=== PATIENT | male | born 1930 | race Caucasian/White ===

== ENCOUNTER → 2016-06-27 | Outpatient (CLI) | payer OTHER, BC ==
[2016-06-27 11:39] LABS: BILIRUBIN,TOTAL 0.7 mg/dL (0.3-1.2); BUN/CREATININE RATIO 20.83 (6-20); CALCIUM 9.8 mg/dL (8.7-10.7); CREATININE 1.2 mg/dL (0.70-1.50); LDL CHOLESTEROL,CALCULATED 54.6 mg/dL; POTASSIUM 4.5 meq/L (3.8-5.2); TOTAL PROTEIN 7.1 g/dL (6.1-8.0)
== END ==
LOC: LAB 11:10
PROVIDERS: ATTEND Internal Medicine
DX: I10 Essential (primary) hypertension (principal); E78.5 Hyperlipidemia, unspecified
CPT/HCPCS: 36415; 80053; 80061; 82550

== ENCOUNTER → 2016-06-30 | Outpatient (CLI) | payer OTHER, BC | LOC: MMPC 11:11 | PROVIDERS: ATTEND Internal Medicine | DX: I10 Essential (primary) hypertension (principal); E78.5 Hyperlipidemia, unspecified; L57.8 Other skin changes due to chronic exposure to nonionizing radiation; R04.0 Epistaxis; Z95.0 Presence of cardiac pacemaker | CPT/HCPCS: 99214; G0463 ==

== ENCOUNTER 2017-02-20 10:20 | Observation (INO) ==
[2017-02-20] MEDS ORDERED: ASPIRIN 81 MG (BABY) CHEWABLE TABLET ONE (10:37)
[2017-02-20] MEDS ORDERED: Sodium Chloride 0.9% 1,000 ML ONE (10:37)
[2017-02-20] MEDS ORDERED: NITROGLYCERIN 0.4 MG SL TAB (BOTTLE OF 3) SL ONE (10:37)
[2017-02-20] MEDS: NITROGLYCERIN 0.4 MG SL TAB (BOTTLE OF 3) SL ONE ×2 (10:40→10:48)
[2017-02-20] MEDS ORDERED: ASPIRIN 81 MG (BABY) CHEWABLE TABLET PO ONE (10:40)
[2017-02-20] MEDS ORDERED: NORMAL SALINE 10 ML SYRINGE FLUSH IVP PRN ×2 (10:40→12:37)
--- NOTE | 2017-02-20 10:42 | EKG ---
[address] [place] [address] Measurements Intervals Gray Rate: 57 P: PA: 0 QRS: -6 QRSD: 118 T: 113 QT: 448 QTc: 442 Interpretive Statements UNCERTAIN IRREGULAR RHYTHM ELECTRONIC VENTRICULAR PACEMAKER -- CONTOUR ANALYSIS BASED ON INTRINSIC RHYTHM MODERATE INTRAVENTRICULAR CONDUCTION DELAY [110+ ms QRS DURATION] ST DEVIATION AND MODERATE T-WAVE ABNORMALITY, CONSIDER ANTEROLATERAL ISCHEMIA [-0.1+ mV T WAVE IN V3-V6] Compared to ECG 06/12/2015 09:20:42 Intraventricular conduction delay now present T-wave abnormality now present Possible ischemia now present Electronically Signed On 02-23-17 08:38:36 MST by Santiago Hassan MD [email or web address]
[2017-02-20 10:47] LABS: BASOPHILS # (AUTO) 0.07 10*3/UL; BASOPHILS % (AUTO) 0.6 % (0-1); EOSINOPHILS # (AUTO) 0.21 10*3/UL; EOSINOPHILS % (AUTO) 1.9 % (0-8); Hematocrit [HCT] 40.1 % (42.0-52.0); Hemoglobin [HGB] 13.9 g/dL (14.0-18.0); LYMPHOCYTES # (AUTO) 5.94 10*3/uL; MEAN CORPUSCULAR HEMOGLOBIN 30.5 PG (27-31); MEAN CORPUSCULAR HGB CONC 34.7 g/dL (33-37); MEAN CORPUSCULAR VOLUME 87.9 FL (80-90); MONOCYTES # (AUTO) 1.12 10*3/UL (0.3-0.8); MONOCYTES % (AUTO) 10.2 % (5-15); NEUTROPHILS # (AUTO) 3.61 10*3/UL; RED BLOOD COUNT 4.56 10^6/uL (4.70-6.10)
--- NOTE | 2017-02-20 10:47 | PDOC ---
Chest Pain HPI - General Chief Complaint: Chest Pain Stated Complaint: chest pain Date Seen by Provider: 02/20/17 Time Seen by Provider: 10:30 Source: Patient Exam Limitations: POSITIVE: No limitations Treatment Prior to Arrival: REPORTS: Nitroglycerin (Patient took one sublingual nitroglycerin at home prior to arrival), Aspirin (Patient last took aspirin last night) Nurse's Notes Reviewed & Considered: Yes - History of Present Illness Initial Comments: The patient is an 86-year-old male who presents to the emergency department with the chief complaint of chest pain. He has a known history of coronary artery disease and has had stent placement on 2 prior occasions, both over 10 years ago. He also has a pacemaker. He states that after waking up this morning approximately one hour prior to arrival here in the emergency department he developed a very slight chest pressure associated with general malaise and lack of energy. He states that the pain is somewhat similar to cardiac issues that he has had in the past. He did take a sublingual nitroglycerin at home which seem to have improved the pain. By the time he arrives here in the emergency department his pain is very minimal. After lying in the bed he states that his pain is less than 1. His pain was never very intense even when it was at its worst. He denies any associated shortness of breath, nausea or vomiting, diaphoresis. The pain did not seem to worsen with walking. He is not have any increased pain with taking a deep breath. He denies any pain or swelling in his extremities. - Patient Home Medications Home Medications: Home Medications Vits A,C,E/Lutein/Minerals [Vision Vitamins Tablet] 1 tab PO DAILY tab arginine HCl (L-arginine) 1,000 mg tablet 1,000 mg PO DAILY tab 12/25/16 aspirin 81 mg tablet,delayed release 81 mg PO DAILY #90 tab 12/25/16 benazepril 10 mg tablet 10 mg PO QDAY #90 tab 12/25/16 cholecalciferol (vitamin D3) 2,000 unit capsule 4,000 unit PO DAILY cap clopidogrel 75 mg tablet 75 mg PO DAILY #90 tab 12/25/16 furosemide 40 mg tablet 40 mg PO QAM #90 tab 12/25/16 magnesium amino acid chelate 100 mg tablet 100 mg PO DAILY tab 12/25/16 meclizine 25 mg tablet 25 mg PO QID PRN #30 tab 12/25/16 multivitamin with minerals tablet 1 tab PO BID #60 tab 12/25/16 nitroglycerin 0.4 mg sublingual tablet 0.4 mg SL Q5M PRN #30 tab 12/25/16 potassium gluconate 595 mg (99 mg) tablet 198 mg PO DAILY unit 12/25/16 red yeast rice 600 mg capsule 600 mg PO DAILY cap 12/25/16 saw palm 160 mg-vit E 100 unit-selen 100 dsn-nrio-zzwheq-pygeum tablet 3 tab PO QDAY #30 tab 12/25/16 simvastatin 20 mg tablet 20 mg PO QHS #90 tab 12/25/16 - Patient Allergies Allergies/Adverse Reactions: Allergies 3 Allergy/AdvReac Type Severity Reaction Status Date / Time carvedilol [From Coreg] AdvReac Intermediate DIZZINESS Verified 02/20/17 11:01 Past Medical History - heen HEENT History: Other (please comment) Additional HEENT History: wears glasses Cardiovascular History: Hypertension, Angina, Previous RI, CAD, Arrhythmia, Pacemaker, Hyperlipidemia Additional Cardiovasular History: RI in 1990, Pacemaker placement 06/2011 Respiratory History: Denies History Gastrointestinal History: Denies History Genitourinary History: Other (please comment) Additional Genitourinary History: BPH Endocrine History: Denies History Musculoskeletal History: Denies History Neurological History: Denies History Blood Disorders: Denies History Psychiatric History: Denies History History of Sexually Transmitted Diseases: No Cancer History: Denies History History of MDRO: Unknown History of Other Communicable Diseases: No Alcohol Use: None In the Past 12 Months, Have Used or Abuse Any Substance: None Previous Surgical History: Yes Type / Date of Surgery: pacemaker 06/2011 Anesthesia Reactions: No Significant Family History: Heart disease Past Medical History Reviewed: Other (please comment) ROS - Limitations ROS Limitations: No Limitations Constitution: REPORTS: Other (General malaise and lack of energy this morning). DENIES: Chills, Fever Cardiovascular: REPORTS: Chest Pain. DENIES: Heart Racing, Heart Palpitations, Edema Respiratory: DENIES: Cough Non Productive, Cough Productive, Hurts To Breathe, Shortness Of Breath Neurological: DENIES: Headache, Numbness, Weakness Gastrointestinal: DENIES: Abdominal Pain, Nausea, Vomitting Musculoskeletal: REPORTS: Denies MS Symptoms Eyes: REPORTS: Denies Symptoms ENT: REPORTS: Denies Symptoms Skin: DENIES: Rash Chest Pain PE - General Appearance General Appearance: REPORTS: Alert, Cooperative, No Acute Distress - HEENT HEENT: POSITIVE: Head Inspection Nml, Eyes Inspection Nml, Ears Inspection Nml, Nose Inspection Nml, Pharynx Inspect. Nml - Neck Neck: REPORTS: Normal Inspection. 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 Lab Results Reviewed by Me: Yes CBC and BMP: 02/20/17 10:25 02/20/17 10:25 EKG Interpreted/Reviewed By Me:: Yes EKG Interpretation:: POSITIVE: Other (EKG shows a paced rhythm which appears to be unchanged from her previous from May 2015 by my interpretation) - Patient's Progress MDM / ED Course: On arrival the patient's pain had improved and was basically resolved by the time of initial evaluation. EKG shows a paced rhythm in the 50s with no obvious acute changes when compared to previous. He was given aspirin per chest pain protocol. The patient's pain resolved while he was here in the emergency department. Vital signs remained stable with a intermittently paced rhythm in the 50s. His initial blood work reveals a normal d-dimer and normal troponin. Chest x-ray shows mild increased interstitial markings compared to previous per radiologist. Findings were discussed with the patient. The patient does have known coronary artery disease and I did recommend that the patient be admitted for further monitoring and testing. The patient was initially reluctant and consider his options and decided to be admitted. Dr. Navarro has agreed to admit the patient. - Consult Counseled: POSITIVE: Patient, Family, RE: Lab Results, RE: Radiology Results, RE : DX Patient Care Time - Estimated PCT Patient Care Time (In Minutes): 35 Vital Signs - Recent Vital Signs Vital Signs: Vital Signs (Last 8 hours) Temp Pulse Pulse Pulse Resp BP Pulse Ox 02/20/17 10:26 57 L 02/20/17 10:20 97.4 F 64 62 62 16 161/76 98 - VS Reviewed Vital Signs Reviewed: Yes Discharge Clinical Impression: Chest pain Discharge Disposition: Admit to Observation Condition: Fair
[2017-02-20 10:55] LABS: BLOOD UREA NITROGEN 19 mg/dL (7-22); BUN/CREATININE RATIO 17.27 (6-20); MAGNESIUM 1.9 mg/dL (1.6-2.4); SERUM ALBUMIN 4.5 g/dL (3.5-4.8)
[2017-02-20 11:15] LABS: PLATELET MORPHOLOGY COMMENT NORMAL MORPHOLOGY (NORM); RBC MORPHOLOGY COMMENT NORMAL MORPHOLOGY (NORM); WBC MORPHOLOGY COMMENT SEE COMMENTS (NORM)
--- NOTE | 2017-02-20 11:46 | DI ---
XR CXR 1VW,02/20/2017 10:40 AM: Clinical History: Chest pain Previous Exam: August 11, 2013 Findings: A single frontal radiograph of the chest is obtained, and demonstrates mild cardiomegaly. Overlying E KG leads are noted. There is stable pacemaker noted. There are some mild increased interstitial markings. Impression: Mild increased interstitial markings compared with the prior exam otherwise unremarkable. This could represent some early edema.
--- NOTE | 2017-02-20 12:03 | PDOC ---
HPI - History of Present Illness Chief Complaint: Chest pain History of Present Illness: This very nice 86-year-old gentleman with past medical history significant for coronary artery disease with multiple stents both the over 10-11 years ago around the year 1999 he also has a pacemaker. He woke up this morning around 9 AM complaining of mild chest pain 2 out of 10 by the time that he went to the ER the pain was resolved and now he is chest pain-free but because of his history of coronary artery disease and at the pain is unusual for him was admitted for observation to rule it out and do most likely a Lexiscan stress test pain did not radiate to left arm jaw or neck no nausea vomiting or diaphoresis or shortness of breath Past Medical History Medical History: Coronary artery disease, hypertension Surgical History: Multiple stents in the year 1999 Tobacco Use: Never Smoker In the Past 12 Months, Have Used or Abuse Any of the Following Substance: None Alcohol Use: None Medication / Allergies Home Medications: Home Medications Medication Instructions Recorded Confirmed Type Vits A,C,E/Lutein/Minerals [Vision 1 tab PO DAILY tab 12/25/16 02/20/17 History Vitamins Tablet] arginine HCl (L-arginine) 1,000 mg 1,000 mg PO DAILY tab 12/25/16 02/20/17 History tablet aspirin 81 mg tablet,delayed 81 mg PO DAILY #90 tab 12/25/16 02/20/17 History release benazepril 10 mg tablet 10 mg PO QDAY #90 tab 12/25/16 02/20/17 Rx cholecalciferol (vitamin D3) 2,000 4,000 unit PO DAILY cap 12/25/16 02/20/17 History unit capsule clopidogrel 75 mg tablet 75 mg PO DAILY #90 tab 12/25/16 02/20/17 Rx furosemide 40 mg tablet 40 mg PO QAM #90 tab 12/25/16 02/20/17 Rx magnesium amino acid chelate 100 100 mg PO DAILY tab 12/25/16 02/20/17 History mg tablet meclizine 25 mg tablet 25 mg PO QID PRN #30 tab 12/25/16 02/20/17 History multivitamin with minerals tablet 1 tab PO BID #60 tab 12/25/16 02/20/17 History nitroglycerin 0.4 mg sublingual 0.4 mg SL Q5M PRN #30 tab 12/25/16 02/20/17 Rx tablet potassium gluconate 595 mg (99 mg) 198 mg PO DAILY unit 12/25/16 02/20/17 History tablet red yeast rice 600 mg capsule 600 mg PO DAILY cap 12/25/16 02/20/17 History saw palm 160 mg-vit E 100 3 tab PO QDAY #30 tab 12/25/16 02/20/17 Rx unit-selen 100 fha-ptxe-btukbt-pygeum tablet simvastatin 20 mg tablet 20 mg PO QHS #90 tab 12/25/16 02/20/17 Rx Allergies/Adverse Reactions: Allergies 3 Allergy/AdvReac Type Severity Reaction Status Date / Time carvedilol [From Coreg] AdvReac Intermediate DIZZINESS Verified 02/20/17 11:01 Review of Systems - Review of Systems All Systems: Reviewed & No Additional Complaints Except as Stated - Eye Exam Eye Exam: DENIES: Negative System Review, Acuity Good, Acuity Fair, Acuity Poor , Glasses/Contacts, Vision Loss, Blurring, Redness, Diplopia, Catarats, Other, See HPI - Cardiovascular Cardiovascular: REPORTS: Chest Pain. DENIES: Edema, Syncope, Palpitations, Orthopnea - Gastrointestinal Gastrointestinal / Abdominal: DENIES: Negative System Review, Nausea, Vomiting, Diarrhea, Constipation, Abdominal Pain, Bloody Stool, Poor Appetite, Heartburn, Regurgitation, Bloating, Lactose Intolerance, Melena, Bright Red Blood per Rectum, Other, See HPI - Genitourinary Genitourinary: DENIES: Negative System Review, Pain, Burning, Hematuria, Incontinence, Urgency, Hesitant Stream, Decreased Stream, Nocutria, Discharge, Sexual Dysfunction, Other, See HPI Exam - Vitals Vital Signs: Vital Signs Temperature 97.4 F Temperature Source Temporal Artery Scan Pulse Rate [Telemetry] 62 Pulse Rate [Apical] 62 Pulse Rate 57 Respiratory Rate 16 Blood Pressure [Right Arm] 161/76 Pulse Ox 98 Oxygen Delivery Method Room Air Height 6 ft 2 in Weight 180 lb - General General Appearance: No Acute Distress, Cooperative - Head Head Exam: Normal Inspection, Normocephalic, Atraumatic - Eye Eye Exam: POSITIVE: Normal Appearance, PERRL, EOMI, No Scleral Icterus - ENT ENT Exam: POSITIVE: Normal Exam, Normal External Ear Exam, Normal Oropharynx, TM 's Normal Bilaterally, Mucous Membranes Moist - Neck Neck Exam: Normal Inspection, Full ROM, No Tenderness, No Lymphadenopathy, No Thyromegaly, JVP is not Raised - Respiratory Respiratory Exam: POSITIVE: Clear to Auscultation - Bilaterally, Breathing Non Labored, Normal To Percussion, Normal to Percussion and Palpation - Cardiovascular Cardiovascular Exam: POSITIVE: RRR, No Murmur, No Clicks, No Gallops, No Rubs, PMI Non-Displaced - GI/Abdominal GI/Abdominal Exam: POSITIVE: Normal Bowel Sounds, Non Tender, Non Distended, Soft, No Masses, No Hepatomegaly, No Splenomegaly, No Organomegaly - Rectal Rectal Exam: POSITIVE: Deferred - External Exam: POSITIVE: Deferred Exam: POSITIVE: Deferred - Extremities Extremities Exam: POSITIVE: Normal Inspection, Full ROM, Normal Capillary Refill , No Clubbing Present, No Edema Present, No Cyanosis Present, Dosalis Pedis Pulses - Stong & Regular - Neurological Neurological Exam: POSITIVE: Alert, Oriented x 3, Reflexes Normal, Normal Gait, CN II-XII Intact, No Facial Droop, Speech Intact / Clear, Moves All Extremities Equally - Psychiatric Psychiatric Exam: POSITIVE: Normal Affect, Normal Mood - Integumentary Integumentary Exam: POSITIVE: Normal Color, Warm, Dry, Intact Results - Labs CBC and BMP: 02/20/17 10:25 02/20/17 10:25 Assessment and Plan - Patient Problems (1) Chest pain Current Visit: Yes Status: Acute Comment: Unusual pain for this patient we will admit to observation rule out with serial troponins for Lexiscan stress test Code(s): R07.9 - Chest pain, unspecified (2) Coronary artery disease Current Visit: No Status: Acute Onset Date: 02/26/11 Code(s): I25.10 - Atherosclerotic heart disease of [place] coronary artery without angina pectoris (3) Essential hypertension Current Visit: No Status: None
[2017-02-20] MEDS ORDERED: LYC PO SCH (12:37)
[2017-02-20] MEDS ORDERED: VIT E PO SCH (12:37)
[2017-02-20] MEDS ORDERED: CALCIUM CARBONATE 500 MG (TUMS) CHEWABLE TABLET PO PRN (12:37)
[2017-02-20] MEDS ORDERED: LIDOCAINE W/ SODIUM BICARB 0.5 ML SYR SUBD PRN (12:37)
[2017-02-20] MEDS ORDERED: NITROGLYCERIN 0.4 MG SL TAB (BOTTLE OF 3) SL PRN (12:37)
[2017-02-20] MEDS ORDERED: SOD SEL PO SCH (12:37)
[2017-02-20] MEDS ORDERED: BETA PO SCH (12:37)
[2017-02-20] MEDS ORDERED: SAW PO SCH (12:37)
[2017-02-20] MEDS ORDERED: PYG PO SCH (12:37)
[2017-02-20] MEDS ORDERED: MECLIZINE 25 MG CHEWABLE TABLET PO PRN (13:00)
[2017-02-20] MEDS: FUROSEMIDE 40 MG TABLET PO SCH (15:00)
[2017-02-20] MEDS ORDERED: Simvastatin Tab 20 MG TAB PO SCH (21:00)
[2017-02-21 06:51] LABS: BLOOD UREA NITROGEN 22 mg/dL (7-22); BUN/CREATININE RATIO 18.33 (6-20); CHOL/HDL RATIO 1.89 RATIO (0-4.0); SERUM ALBUMIN 3.7 g/dL (3.5-4.8); SERUM CHOLESTEROL 146 mg/dL (120-200)
[2017-02-21] MEDS ORDERED: CLOPIDOGREL 75 MG TABLET PO SCH (09:00)
[2017-02-21] MEDS ORDERED: CHOLECALCIFEROL 1000 IU TABLET PO SCH (09:00)
[2017-02-21] MEDS ORDERED: MAGNESIUM AMINO ACID CHELATE PO SCH (09:00)
[2017-02-21] MEDS ORDERED: Potassium Chloride Tab 10 MEQ TAB PO SCH (09:00)
[2017-02-21] MEDS ORDERED: ARGININE HCL 1000 MG PO SCH (09:00)
[2017-02-21] MEDS ORDERED: Multivitamin Tab 1 TAB PO SCH (09:00)
[2017-02-21] MEDS ORDERED: ASPIRIN EC 81 MG TABLET PO SCH (09:00)
[2017-02-21] MEDS ORDERED: BENAZEPRIL 10 MG TABLET PO SCH (09:00)
[2017-02-21] MEDS ORDERED: Beta Carot W/Vit E,C,Min Tab 1 TAB TAB PO SCH (09:00)
[2017-02-21] MEDS: FUROSEMIDE 40 MG TABLET PO SCH (09:29)
--- NOTE | 2017-02-21 10:51 | STRESSTEST ---
[facility] Interpretive Statements 86 yo man with hx of CAD and multiple stents,had some chest [place]ura which resolved in ER . troponins remained normal. paced rythm no acute changes on stress portion. Will await pictures [email or web address]
--- NOTE | 2017-02-21 10:53 | PDOC(PROG) ---
Interval History: Patient did great. We did a stress test this morning he had no chest pain overnight or during his stress test were no acute findings on stress portion pictures will be done Objective : Data - Labs CBC and BMP: 02/20/17 10:25 02/21/17 06:20 Objective : Exam - General General Appearance: Cooperative - Respiratory Respiratory Exam: Clear to Auscultation - Bilaterally, Breathing Non Labored, Normal To Percussion, Normal to Percussion and Palpation - Cardiovascular Cardiovascular Exam: RRR, No Murmur, No Clicks, No Gallops - Extremities Extremities Exam: No Clubbing Present, No Edema Present Assessment and Plan - Patient Problems (1) Chest pain Current Visit: Yes Status: Acute Code(s): R07.9 - Chest pain, unspecified (2) Coronary artery disease Current Visit: No Status: Acute Onset Date: 02/26/11 Code(s): I25.10 - Atherosclerotic heart disease of [place] coronary artery without angina pectoris (3) Essential hypertension Current Visit: No Status: None - Assessment / Plan Additional Assessment/Plan Details: #1 coronary artery disease chest pain rule out Troponins are negative stress test was done awaiting pictures if negative can be discharged
--- NOTE | 2017-02-21 12:00 | DCSUMMARY ---
Hospitalization Summary Hospital Course: Final Discharge Diagnosis: Current Visit Problems Problem Status Onset Code Chest pain Acute R07.9 Chest pain Acute R07.9 Diagnostic Data, Laboratory Data, and Procedures of Signifigance: Laboratory Results 02/20/17 02/20/17 02/20/17 Range/Units 10:25 10:25 10:25 WBC 10.97 H (4.8-10.8) 10^3/uL RBC 4.56 L (4.70-6.10) 10^6/uL Hgb 13.9 L (14.0-18.0) g/dL Hct 40.1 L (42.0-52.0) % MCV 87.9 (80-90) FL MCH 30.5 (27-31) PG MCHC 34.7 (33-37) g/dL RDW Std Deviation 47.0 (39-50) fL RDW Coeff of Cammy 14.9 H (11.5-14.5) % Plt Count 337 (140-350) 10*3/uL MPV 10.0 (7.4-12.2) FL Immature Gran % (Auto) 0.2 (0-5) % Neut % (Auto) 33.0 L (50-80) % Lymph % (Auto) 54.1 H (10-50) % Ocean % (Auto) 10.2 (5-15) % Eos % (Auto) 1.9 (0-8) % Baso % (Auto) 0.6 (0-1) % Immature Gran # (Auto) 0.02 10*3/UL Neut # (Auto) 3.61 10*3/UL Lymph # (Auto) 5.94 10*3/uL Ocean # (Auto) 1.12 H (0.3-0.8) 10*3/UL Eos # (Auto) 0.21 10*3/UL Baso # (Auto) 0.07 10*3/UL WBC Morphology Comment See comments (NORM) Plt Morphology Comment Normal morphology (NORM) RBC Morph Comment Normal morphology (NORM) D-Dimer 0.48 (0.00-0.59) mg/L Sodium 140 (135-145) meq/L Potassium 4.6 (3.8-5.2) meq/L Chloride 101 (98-112) meq/L Carbon Dioxide 27 (23-33) meq/L Anion Gap 12 (5-20) BUN 19 (7-22) mg/dL Creatinine 1.1 (0.70-1.50) mg/dL BUN/Creatinine Ratio 17.27 (6-20) Glucose 103 (78-110) mg/dL Calculated Osmolality 291.0 (267-292) mOsm/kg Calcium 9.9 (8.7-10.7) mg/dL Magnesium 1.9 (1.6-2.4) mg/dL Total Bilirubin 0.8 (0.3-1.2) mg/dL AST 72 H (21-57) IU/L ALT 54 (21-72) IU/L Alkaline Phosphatase 103 (38-126) IU/L CK-MB (CK-2) (0.00-5.00) NG/ML Troponin I (< 0.040) ng/mL Total Protein 7.7 (6.1-8.0) g/dL Albumin 4.5 (3.5-4.8) g/dL Globulin 3.2 (2.50-4.10) g/dL Albumin/Globulin Ratio 1.40 (1.3-2.0) mg/g Triglycerides (44-200) mg/dL Cholesterol (120-200) mg/dL LDL Cholesterol, Calc mg/dL VLDL Cholesterol (0-40) mg/dL HDL Cholesterol (40-150) mg/dL Cholesterol/HDL Ratio (0-4.0) RATIO TSH (0.2700-4.2000) uIU/mL Free T4 (0.93-1.71) ng/dL 02/20/17 02/20/17 02/20/17 Range/Units 10:25 12:56 18:30 WBC (4.8-10.8) 10^3/uL RBC (4.70-6.10) 10^6/uL Hgb (14.0-18.0) g/dL Hct (42.0-52.0) % MCV (80-90) FL MCH (27-31) PG MCHC (33-37) g/dL RDW Std Deviation (39-50) fL RDW Coeff of Cammy (11.5-14.5) % Plt Count (140-350) 10*3/uL MPV (7.4-12.2) FL Immature Gran % (Auto) (0-5) % Neut % (Auto) (50-80) % Lymph % (Auto) (10-50) % Ocean % (Auto) (5-15) % Eos % (Auto) (0-8) % Baso % (Auto) (0-1) % Immature Gran # (Auto) 10*3/UL Neut # (Auto) 10*3/UL Lymph # (Auto) 10*3/uL Ocean # (Auto) (0.3-0.8) 10*3/UL Eos # (Auto) 10*3/UL Baso # (Auto) 10*3/UL WBC Morphology Comment (NORM) Plt Morphology Comment (NORM) RBC Morph Comment (NORM) D-Dimer (0.00-0.59) mg/L Sodium (135-145) meq/L Potassium (3.8-5.2) meq/L Chloride (98-112) meq/L Carbon Dioxide (23-33) meq/L Anion Gap (5-20) BUN (7-22) mg/dL Creatinine (0.70-1.50) mg/dL BUN/Creatinine Ratio (6-20) Glucose (78-110) mg/dL Calculated Osmolality (267-292) mOsm/kg Calcium (8.7-10.7) mg/dL Magnesium (1.6-2.4) mg/dL Total Bilirubin (0.3-1.2) mg/dL AST (21-57) IU/L ALT (21-72) IU/L Alkaline Phosphatase (38-126) IU/L CK-MB (CK-2) 3.43 (0.00-5.00) NG/ML Troponin I < 0.012 < 0.012 0.018 (< 0.040) ng/mL Total Protein (6.1-8.0) g/dL Albumin (3.5-4.8) g/dL Globulin (2.50-4.10) g/dL Albumin/Globulin Ratio (1.3-2.0) mg/g Triglycerides (44-200) mg/dL Cholesterol (120-200) mg/dL LDL Cholesterol, Calc mg/dL VLDL Cholesterol (0-40) mg/dL HDL Cholesterol (40-150) mg/dL Cholesterol/HDL Ratio (0-4.0) RATIO TSH (0.2700-4.2000) uIU/mL Free T4 (0.93-1.71) ng/dL 02/21/17 02/21/17 02/21/17 Range/Units 06:20 06:20 06:20 WBC (4.8-10.8) 10^3/uL RBC (4.70-6.10) 10^6/uL Hgb (14.0-18.0) g/dL Hct (42.0-52.0) % MCV (80-90) FL MCH (27-31) PG MCHC (33-37) g/dL RDW Std Deviation (39-50) fL RDW Coeff of Cammy (11.5-14.5) % Plt Count (140-350) 10*3/uL MPV (7.4-12.2) FL Immature Gran % (Auto) (0-5) % Neut % (Auto) (50-80) % Lymph % (Auto) (10-50) % Ocean % (Auto) (5-15) % Eos % (Auto) (0-8) % Baso % (Auto) (0-1) % Immature Gran # (Auto) 10*3/UL Neut # (Auto) 10*3/UL Lymph # (Auto) 10*3/uL Ocean # (Auto) (0.3-0.8) 10*3/UL Eos # (Auto) 10*3/UL Baso # (Auto) 10*3/UL WBC Morphology Comment (NORM) Plt Morphology Comment (NORM) RBC Morph Comment (NORM) D-Dimer 0.35 (0.00-0.59) mg/L Sodium 140 (135-145) meq/L Potassium 4.6 (3.8-5.2) meq/L Chloride 101 (98-112) meq/L Carbon Dioxide 28 (23-33) meq/L Anion Gap 11 (5-20) BUN 22 (7-22) mg/dL Creatinine 1.2 (0.70-1.50) mg/dL BUN/Creatinine Ratio 18.33 (6-20) Glucose 91 (78-110) mg/dL Calculated Osmolality 292.0 (267-292) mOsm/kg Calcium 9.8 (8.7-10.7) mg/dL Magnesium (1.6-2.4) mg/dL Total Bilirubin 0.6 (0.3-1.2) mg/dL AST 46 (21-57) IU/L ALT 51 (21-72) IU/L Alkaline Phosphatase 89 (38-126) IU/L CK-MB (CK-2) (0.00-5.00) NG/ML Troponin I (< 0.040) ng/mL Total Protein 6.3 (6.1-8.0) g/dL Albumin 3.7 (3.5-4.8) g/dL Globulin 2.6 (2.50-4.10) g/dL Albumin/Globulin Ratio 1.40 (1.3-2.0) mg/g Triglycerides 47 (44-200) mg/dL Cholesterol 146 (120-200) mg/dL LDL Cholesterol, Calc 59.600 mg/dL VLDL Cholesterol 9 (0-40) mg/dL HDL Cholesterol 77 (40-150) mg/dL Cholesterol/HDL Ratio 1.89 (0-4.0) RATIO TSH 1.19 (0.2700-4.2000) uIU/mL Free T4 1.51 (0.93-1.71) ng/dL History and Physical pertinent to Admission: Course of Hospitalization: This very nice 86-year-old gentleman with past medical history of coronary artery disease and multiple stents and about 10 years ago woke up with some chest pain which resolved very quickly by the time he was in the ER he was chest pain-free overnight he had no chest pain troponins remain negative stress test was performed did well with it and we are waiting for final results of the pictures if these come back negative with no reversible defects patient will be discharged home he agrees and understands discussed with nursing as well On the date of discharge, the patient was examined: Gen.: No acute distress, alert, nontoxic Heart: Regular rate and rhythm, no murmurs, clicks, gallops, or rubs Lungs: Clear to auscultation bilaterally, breathing is nonlabored Abdomen/GI: Normal tones on auscultation, soft, nontender, nondistended Musculoskeletal/extremities: No clubbing, cyanosis, or edema Vitals reviewed and are listed below Vital Signs (24 hrs) Temp Pulse Pulse Pulse Pulse Resp BP 02/21/17 11:00 57 L 02/21/17 08:43 98.1 F 56 L 16 125/59 02/21/17 07:00 52 L 58 L 02/21/17 05:05 02/21/17 04:10 98.2 F 50 L 20 02/21/17 03:00 52 L 02/21/17 01:00 98.8 F 52 L 18 02/20/17 23:00 61 02/20/17 20:02 97.2 F 58 L 20 02/20/17 19:00 52 L 02/20/17 17:00 97 F 60 18 02/20/17 15:00 54 L 02/20/17 12:40 97.2 F 79 18 02/20/17 12:39 52 L BP Pulse Ox 02/21/17 11:00 02/21/17 08:43 95 02/21/17 07:00 02/21/17 05:05 94 02/21/17 04:10 127/56 92 02/21/17 03:00 02/21/17 01:00 131/58 95 02/20/17 23:00 02/20/17 20:02 157/61 95 02/20/17 19:00 02/20/17 17:00 159/64 96 02/20/17 15:00 02/20/17 12:40 157/68 97 02/20/17 12:39 Assessment and Plan: 1. As per discharge assessments above 2. Disposition: 3. Condition on discharge, stable and improved. 4. Diet: regular diet 5. Activities: resume normal activities 6. Follow-Up: 1. PCP primary care physician 2. 7. Medications at the Time of Discharge: Home Medications Medication Instructions Recorded Confirmed Type Vits A,C,E/Lutein/Minerals [Vision 1 tab PO DAILY tab 12/25/16 02/20/17 History Vitamins Tablet] arginine HCl (L-arginine) 1,000 mg 1,000 mg PO DAILY tab 12/25/16 02/20/17 History tablet aspirin 81 mg tablet,delayed 81 mg PO DAILY #90 tab 12/25/16 02/20/17 History release benazepril 10 mg tablet 10 mg PO QDAY #90 tab 12/25/16 02/20/17 Rx cholecalciferol (vitamin D3) 2,000 4,000 unit PO DAILY cap 12/25/16 02/20/17 History unit capsule clopidogrel 75 mg tablet 75 mg PO DAILY #90 tab 12/25/16 02/20/17 Rx furosemide 40 mg tablet 40 mg PO QAM #90 tab 12/25/16 02/20/17 Rx magnesium amino acid chelate 100 100 mg PO DAILY tab 12/25/16 02/20/17 History mg tablet meclizine 25 mg tablet 25 mg PO QID PRN #30 tab 12/25/16 02/20/17 History multivitamin with minerals tablet 1 tab PO BID #60 tab 12/25/16 02/20/17 History nitroglycerin 0.4 mg sublingual 0.4 mg SL Q5M PRN #30 tab 12/25/16 02/20/17 Rx tablet potassium gluconate 595 mg (99 mg) 198 mg PO DAILY unit 12/25/16 02/20/17 History tablet red yeast rice 600 mg capsule 600 mg PO DAILY cap 12/25/16 02/20/17 History saw palm 160 mg-vit E 100 3 tab PO QDAY #30 tab 12/25/16 02/20/17 Rx unit-selen 100 [id number]-[id number]-cbbkol-pygeum tablet simvastatin 20 mg tablet 20 mg PO QHS #90 tab 12/25/16 02/20/17 Rx Aspirin Chewable Tab 324 mg PO ONCE (ED) tab 02/21/17 Rx Beta Carot W/Vit E,C,Min Tab 1 tab PO DAILY tab 02/21/17 Rx [Ocuvite Tab] Calcium Carbonate [Tums] 1 - 2 tab PO QID PRN tab.chew 02/21/17 Rx Cholecalciferol [Vitamin D3] 2,000 iu PO DAILY tab 02/21/17 Rx Clopidogrel [Plavix] 75 mg PO DAILY tab 02/21/17 Rx Simvastatin [Zocor] 20 mg PO BEDTIME tab 02/21/17 Rx 3 Generic Name Dose Route Start Last Admin Trade Name Freq PRN Reason Stop Dose Admin Aspirin 81 mg 02/21/17 09:00 02/21/17 09:30 Aspirin Ec PO 81 mg DAILY FILIPPO Administration Benazepril HCl 10 mg 02/21/17 09:00 02/21/17 09:29 Lotensin PO 10 mg DAILY FILIPPO Administration Calcium Carbonate 1 - 2 tab 02/20/17 12:37 Tums PO QID PRN Heartburn Cholecalciferol 2,000 iu 02/21/17 09:00 02/21/17 09:29 Vitamin D3 PO 2,000 iu DAILY FILIPPO Administration Clopidogrel Bisulfate 75 mg 02/21/17 09:00 02/21/17 09:30 Plavix PO 75 mg DAILY FILIPPO Administration Furosemide 40 mg 02/20/17 13:00 02/21/17 09:29 Lasix PO 40 mg DAILY FILIPPO Administration Lidocaine HCl 0.5 ml 02/20/17 12:37 Lidocaine Buffered Inj SUBD ONCE PRN IV Starts Meclizine HCl 25 mg 02/20/17 13:00 Antivert PO QID PRN Nausea Multivitamins Therapeutic 1 tab 02/21/17 09:00 02/21/17 09:30 Thera Tab PO 1 tab DAILY FILIPPO Administration Multivitamins/Minerals 1 tab 02/21/17 09:00 02/21/17 09:30 Ocuvite Tab PO 1 tab DAILY FILIPPO Administration Nitroglycerin 1 tab 02/20/17 12:37 Nitrostat Sl 0.4mg Tab SL Q5M PRN Chest Pain Potassium Chloride 10 meq 02/21/17 09:00 02/21/17 09:30 Klor-Con PO 10 meq DAILY FILIPPO Administration Simvastatin 20 mg 02/20/17 21:00 02/20/17 21:33 Zocor PO 20 mg BEDTIME FILIPPO Administration Sodium Chloride 5 - 20 ml 02/20/17 12:37 Saline Flush IVP BID PRN Flush 8. Time, care, counseling and coordination of care for this discharge is greater than 30 minutes. Exam - Vitals Vital Signs: Vital Signs Temperature 98.1 F Temperature Source Temporal Artery Scan Pulse Rate [Pulse Oximeter] 56 Pulse Rate [Telemetry] 52 Pulse Rate [Apical] 58 Pulse Rate 57 Respiratory Rate 16 Blood Pressure [Left Arm] 125/59 Blood Pressure [Right Arm] 127/56 Pulse Ox 95 Oxygen Delivery Method Room Air Height 6 ft 2 in Weight 177 lb Patient Problems - Patient Problem List (1) Chest pain Current Visit: Yes Status: Acute Code(s): R07.9 - Chest pain, unspecified Category: Medical (2) Coronary artery disease Current Visit: No Status: Acute Onset Date: 02/26/11 Code(s): I25.10 - Atherosclerotic heart disease of teller coronary artery without angina pectoris Category: Medical (3) Essential hypertension Current Visit: No Status: None Category: Medical
[2017-02-21 13:07] VITALS: BP 143/58; RESP 18; TEMP 96.8; O2SAT 93
--- NOTE | 2017-02-21 15:37 | DI ---
Exam: NM OTHER myocardial multi-SPECT nuclear medicine stress test HISTORY: History of stents and pacemaker TECHNIQUE: 2 day stress and rest Lexiscan nuclear medicine stress test was performed. 36.1 mCi of sestamibi technetium 99m was administered for the rest portion of the study. Subsequently on the following day stress portion of the study was performed with 35.9 mCi of sestamibi technetium 99m was administered for the stress portion exam with 0.4 mg per 5 mL Lexiscan administered for the stress portion of the study. Axial vertical sagittal images were obtained. COMPARISON EXAM: Chest radiograph exam 02/20/17. Along with limited CT chest 02/20/17 FINDINGS: Short segment fixed defect in the midportion of the anterior wall of the left ventricle is noted. There is also a fixed defect in the inferior wall of the left ventricle from the mid wall to the base. No reversible defects identified. No other fixed defects seen. Ejection fraction on the rest portion of the study is calculated at 68% and on the stress portion at 71%. There is hypokinesis to akinesis involving the inferior wall of the left ventricle in the region of fixed defect. On the CT chest images provided along with the study cardiac size appears enlarged. There is coronary artery calcification and also likely hernia artery stent along the left anterior descending coronary artery. Cardiac pacer leads in the right atrium and right ventricle are noted. No pericardial effusion. CONCLUSION: 1. No reversible defects identified. 2. Short segment fixed defect in the midportion of the anterior wall in addition to a fixed defect in the inferior wall from the mid wall to the base level. 3. Ejection fraction is cochlear at 68% on the rest portion of the study, and 71% on the stress portion of the examination. 4. There is an area of hypokinesis/akinesis involving the inferior wall in the region of the fixed defect. 5. Correlate with patient's focal findings.
== END 2017-02-21 17:26 | disposition home or self-care (01) ==
LOC: MED/SURG 10:20 → ER 10:20
PROVIDERS: ADMIT Internal Medicine; ATTEND Internal Medicine